=== PATIENT | female | born 1960 | race Two or more races ===

== ENCOUNTER 2017-12-20 06:15 | Day surgery (SDC) | payer OTHER ==
[~2017-12-20 06:15] MED LIST: SYNTHROID50 MCG PO
== END 2017-12-20 11:35 | disposition home or self-care (01) ==
LOC: AMB-ENDOS 06:15
DX: K57.32 Diverticulitis of large intestine without perforation or abscess without bleeding (principal); K57.30 Diverticulosis of large intestine without perforation or abscess without bleeding; K64.1 Second degree hemorrhoids; K56.699 Other intestinal obstruction unspecified as to partial versus complete obstruction; E03.8 Other specified hypothyroidism; G47.33 Obstructive sleep apnea (adult) (pediatric); R73.01 Impaired fasting glucose; J45.20 Mild intermittent asthma, uncomplicated

== ENCOUNTER 2017-12-24 21:30 | Inpatient (IN) | payer OTHER | END 2018-01-02 11:20 | disposition home or self-care (01) | DRG 919 | LOC: SURH 21:30 | PROC: 4A033R1 Measurement of Arterial Saturation, Peripheral, Percutaneous Approach (ICD-10-PCS; principal; 2017-12-25) | PROC: 02HV33Z Insertion of Infusion Device into Superior Vena Cava, Percutaneous Approach (ICD-10-PCS; 2017-12-25) | PROC: 3E0F7GC Introduction of Other Therapeutic Substance into Respiratory Tract, Via Natural or Artificial Opening (ICD-10-PCS; 2017-12-25) | PROC: 3E0436Z Introduction of Nutritional Substance into Central Vein, Percutaneous Approach (ICD-10-PCS; 2017-12-26) | PROC: BW21YZZ Computerized Tomography (CT Scan) of Abdomen and Pelvis using Other Contrast (ICD-10-PCS; 2017-12-27) | PROC: BW21Y0Z Computerized Tomography (CT Scan) of Abdomen and Pelvis using Other Contrast, Unenhanced and Enhanced (ICD-10-PCS; 2018-01-01) | DX: K91.71 Accidental puncture and laceration of a digestive system organ or structure during a digestive system procedure (principal); K65.8 Other peritonitis; K57.32 Diverticulitis of large intestine without perforation or abscess without bleeding; J98.11 Atelectasis; Y84.8 Other medical procedures as the cause of abnormal reaction of the patient, or of later complication, without mention of misadventure at the time of the procedure; Y92.098 Other place in other non-institutional residence as the place of occurrence of the external cause; G47.33 Obstructive sleep apnea (adult) (pediatric); E03.8 Other specified hypothyroidism; J45.20 Mild intermittent asthma, uncomplicated; K62.4 Stenosis of anus and rectum; R73.01 Impaired fasting glucose ==